=== PATIENT | female | born 1970 | race Caucasian/White ===

== ENCOUNTER 2020-07-30 19:13 | Inpatient (IN) ==
[2020-07-30] MEDS ORDERED: methylPREDNISolone 125 MG/2 ML VIAL IV STA (19:20)
[2020-07-30] MEDS ORDERED: diphenhydrAMINE 50 MG/ML VIAL IV STA ×2 (19:20→22:42)
[2020-07-30] MEDS ORDERED: ACETAMINOPHEN 500 MG TAB PO STA (19:21)
[2020-07-30] MEDS ORDERED: FAMOTIDINE 20MG/5ML IV PUSH IV STA ×2 (19:21→22:42)
[2020-07-30] MEDS ORDERED: EPINEPHrine ADULT AUTO-INJECT 0.3 MG SYR IM STA (19:22)
[2020-07-30] MEDS ORDERED: SODIUM CHLORIDE 0.9% 1000ML 1,000 ML IV SCH (19:30)
[2020-07-30] MEDS ORDERED: EPINEPHrine INJ 1 MG/ML AMP ONE ×2 (19:34→22:42)
[2020-07-30] MEDS ORDERED: EPINEPHrine ADULT AUTO-INJECT 0.3 MG SYR IM PRN (21:15)
[2020-07-30] MEDS ORDERED: SODIUM CHLORIDE 0.9% 1000ML 1,000 ML IV ONE (22:43)
--- NOTE | 2020-07-30 23:27 | Emergency Department Note ---
History of Present Illness General Chief complaint: Allergic Reaction Stated complaint: allergic reaction Source: patient Mode of arrival: ambulatory Limitations: no limitations History of Present Illness Provider complaint: Allergic reaction Maximum Pain Intensity: 0 This pt is a 49 yo female who presents to the ED with c/o allergic reaction. Pt has multiple food allergies but states she is uncertain what she was exposed to tonight. It began with L eye swelling, then pt noticed the swelling in the other eye. She took 25 mg of benedryl, but then noticed some fullness in the chest and tightening of the throat, but not severe. Pt took another benedryl and came to ED>. She has a h/o anaphylaxis, but years ago. She does not carry an epi-pen regularly as she hasn't needed one in "years." Home Medications Medication Instructions Recorded Confirmed Type cetirizine [Zyrtec] 10 mg PO DAILY 01/03/20 07/30/20 History spironolactone 50 mg PO DAILY 01/03/20 07/30/20 History diphenhydramine HCl [Benadryl] 25 mg PO Q6H PRN 07/30/20 07/30/20 History epinephrine 0.3 mg IM ONCE #2 ea 07/30/20 Rx glucosamine sulfate [Glucosamine] 0 mg PO DAILY 07/30/20 07/30/20 History ibuprofen [Advil] 200 mg PO Q6H PRN 07/30/20 07/30/20 History prednisone 40 mg PO DAILY 4 Days #8 tab 07/30/20 Rx famotidine 20 mg PO BID 3 Days #6 tab 07/31/20 Rx Allergies Allergy/AdvReac Type Severity Reaction Status Date / Time apple Allergy Severe Unknown Verified 07/31/20 14:05 [email or web address] Allergy Severe Anaphylaxis Verified 07/31/20 13:45 hazelnut Allergy Severe Unknown Verified 07/31/20 14:05 lawson Allergy Severe Anaphylaxis Verified 07/31/20 13:45 mushroom Allergy Severe Anaphylaxis Verified 07/30/20 21:30 nutmeg oil (Myristica seed Allergy Unknown Unknown Verified 07/31/20 14:05 oil) oxycodone Allergy Unknown Hives Verified 07/30/20 21:30 papaya Allergy Unknown Unknown Verified 07/31/20 14:00 passion fruit Allergy Unknown Unknown Verified 07/31/20 14:25 peach Allergy Unknown Unknown Verified 07/31/20 14:05 tomato Allergy Unknown Unknown Verified 07/31/20 14:14 Past Med/Surg History Medical History Anaphylactic reaction Multiple food allergies Seasonal allergies Surgical History No significant past surgical history Social History Smoking Status: Never smoker Second Hand Exposure: No; Hx Alcohol Use: Yes Hx Substance Use: No Preferred Language: Czech Communication Ability: Effective Dredging Inspector Required: No Beliefs That Will Affect Care: None marital status: Current Living Situation: Spouse and Family current occupational status: employed Feels Safe at Home: Yes Assistive Devices: Glasses Review of Systems See HPI for pertinent positives & negatives. and A total of 10 systems reviewed and were otherwise negative Physical Exam Vital Signs Vital Signs - 24 hr 07/30/20 22:41 07/30/20 23:00 07/30/20 23:30 Pulse Rate 88 98 H 89 Pulse Rate [Right Finger] Pulse Rate from SpO2 Sensor 96 H 90 Respiratory Rate 18 19 18 Respiratory Depth Blood Pressure 143/76 H 161/100 H 144/77 H Blood Pressure [Right Arm] Blood Pressure Mean 98 120 99 Blood Pressure Mean [Right Arm] Blood Pressure Position [Right Arm] Pulse Oximetry 99 95 98 Oxygen Delivery Method 07/30/20 23:53 07/31/20 00:00 Pulse Rate 90 Pulse Rate [Right Finger] 91 H Pulse Rate from SpO2 Sensor 89 Respiratory Rate 18 13 Respiratory Depth Normal Blood Pressure 133/81 Blood Pressure [Right Arm] 144/77 H Blood Pressure Mean 98 Blood Pressure Mean [Right Arm] 99 Blood Pressure Position [Right Arm] Lying Pulse Oximetry 96 96 Oxygen Delivery Method Room Air Vital signs reviewed. General: Well-appearing 49 yo female, in no significant distress. HEENT: No conjunctival injections, PERRLA, neck supple. Moderate periorbital swelling, minimal perioral swelling, minimal posterior oropharyngeal edema. Cardiovascular: Regular rate and rhythm, no extra sounds. Pulmonary: Clear to auscultation bilaterally, normal work of breathing. Abdomen: Soft, nontender, nondistended, positive bowel sounds. Musculoskeletal: Atraumatic, no peripheral edema. Neurologic: Patient awake alert and oriented x 3 Skin: Warm, dry, no rash Course Administered Medications Discontinued Medications Acetaminophen (Acetaminophen 500 Mg Tab) 1,000 mg PO NOW STA Stop: 07/30/20 19:22 Last Admin: 07/30/20 19:39 Dose: 1,000 mg Documented by: [id number] Acetaminophen (Acetaminophen 325 Mg Tab) 650 mg PO Q4H PRN PRN Reason: Pain or Fever Stop: 08/30/20 02:00 Last Admin: 07/31/20 13:43 Dose: 650 mg Documented by: [id number] Admin: 07/31/20 10:07 Dose: 650 mg Documented by: [id number] Cetirizine HCl (Cetirizine Hcl 10 Mg Tablet) 10 mg PO DAILY GIOVANNI Stop: 08/30/20 08:59 Last Admin: 07/31/20 08:32 Dose: 10 mg Documented by: [id number] Diphenhydramine HCl (Diphenhydramine 50 Mg/Ml Vial) 50 mg IV NOW STA Stop: 07/30/20 19:21 Last Admin: 07/30/20 19:40 Dose: 50 mg Documented by: [id number] Diphenhydramine HCl (Diphenhydramine 50 Mg/Ml Vial) 25 mg IV NOW STA Stop: 07/30/20 22:43 Last Admin: 07/30/20 22:48 Dose: 25 mg Documented by: [id number] Diphenhydramine HCl (Diphenhydramine Capsule 25 Mg Cap) 25 mg PO Q6H PRN PRN Reason: Allergy Symptoms Stop: 08/30/20 02:00 Last Admin: 07/31/20 12:36 Dose: 25 mg Documented by: [id number] Diphenhydramine HCl (Diphenhydramine 50 Mg/Ml Vial) 12.5 mg IV ONE ONE Stop: 07/31/20 12:29 Last Admin: 07/31/20 12:36 Dose: 12.5 mg Documented by: [id number] Epinephrine HCl (Epinephrine Adult Auto-Inject 0.3 Mg Syr) 0.3 mg IM NOW STA Stop: 07/30/20 19:23 Last Admin: 07/30/20 19:37 Dose: Not Given Documented by: [id number] Epinephrine HCl (Epinephrine Inj 1 Mg/Ml Amp) Confirm Administered Dose 1 mg .ROUTE .STK-MED ONE Stop: 07/30/20 19:35 Last Admin: 07/30/20 19:36 Dose: 0.3 mg Documented by: [id number] Epinephrine HCl (Epinephrine Inj 1 Mg/Ml Amp) Confirm Administered Dose 1 mg .ROUTE .STK-MED ONE Stop: 07/30/20 22:43 Last Admin: 07/30/20 22:44 Dose: 0.3 mg Documented by: [id number] Famotidine (Famotidine 20mg/5ml Iv Push) 20 mg IV ONE STA Stop: 07/30/20 19:22 Last Admin: 07/30/20 19:39 Dose: 20 mg Documented by: [id number] Famotidine (Famotidine 20mg/5ml Iv Push) 20 mg IV ONE STA Stop: 07/30/20 22:43 Last Admin: 07/30/20 22:48 Dose: 20 mg Documented by: [id number] Famotidine (Famotidine 20 Mg Tab) 20 mg PO BID GIOVANNI Stop: 08/30/20 08:59 Last Admin: 07/31/20 08:32 Dose: 20 mg Documented by: [id number] Sodium Chloride (Nss 1000ml) 1,000 mls @ 999 mls/hr IV .Q1H1M GIOVANNI Stop: 07/30/20 20:30 Last Infusion: 07/30/20 20:46 Dose: 0 mls/hr Documented by: [id number] Admin: 07/30/20 19:40 Dose: 999 mls/hr Documented by: [id number] Sodium Chloride (Nss 1000ml) 1,000 mls @ 999 mls/hr IV .Q1H1M ONE Stop: 07/30/20 23:43 Last Infusion: 07/31/20 02:00 Dose: 0 mls/hr Documented by: [id number] Admin: 07/30/20 23:01 Dose: 999 mls/hr Documented by: [id number] Sodium Chloride (Nss 1000ml) 1,000 mls @ 100 mls/hr IV .Q10H GIOVANNI Stop: 08/30/20 02:00 Last Infusion: 07/31/20 12:53 Dose: 0 mls/hr Documented by: [id number] Admin: 07/31/20 02:53 Dose: 100 mls/hr Documented by: [id number] Famotidine 20 mg/ Syringe 5 mls @ 2.5 mls/min IV ONE ONE Stop: 07/31/20 12:46 Last Admin: 07/31/20 13:39 Dose: 2.5 mls/min Documented by: [id number] Methylprednisolone 40 mg/ (Syringe) 0.64 mls @ 1.5 mls/min IV NOW STA Stop: 07/31/20 12:31 Last Admin: 07/31/20 12:56 Dose: 1.5 mls/min Documented by: [id number] Methylprednisolone (Methylprednisolone 125 Mg/2 Ml Vial) 125 mg IV NOW STA Stop: 07/30/20 19:21 Last Admin: 07/30/20 19:39 Dose: 125 mg Documented by: [id number] Prednisone (Prednisone 20 Mg Tab) 40 mg PO DAILY GIOVANNI Stop: 08/30/20 08:59 Last Admin: 07/31/20 08:32 Dose: 40 mg Documented by: [id number] Spironolactone (Spironolactone 25 Mg Tab) 50 mg PO DAILY GIOVANNI Stop: 08/30/20 08:59 Last Admin: 07/31/20 08:32 Dose: 50 mg Documented by: [id number] Critical Care Time Critical Care Time: Yes The high probability of a clinically significant, sudden or life threatening deterioration required my full and direct attention, intervention and personal management. The aggregate critical care time was 40 minutes. This time is in addition to time spent performing reported procedures but includes the following: [x] Data Review and interpretation [x] Patient assessment and monitoring of vital signs [x] Documentation [x] Medication orders and management Medical Decision Making Differential Diagnosis Allergic reaction, anaphylaxis, urticaria, Kolb-Hieu syndrome, toxic epidermal necrolysis, erythema multiforme, contact dermatitis, cellulitis, as well as other pathologies. Medical Records Attestation: I reviewed the patient's medical records. Home Medications Current Medication List: was personally reviewed by me Laboratory Data Attestation: I reviewed the patient's lab results. Result diagrams: 07/31/20 07:29 07/31/20 07:29 Lab Results 07/30/20 07/30/20 Range/Units 22:52 22:52 COVID-19 Eval Order CovFluRsv at [facility] SARS-CoV-2 (PCR) NEGATIVE (Negative) Influenza Type A (PCR) Negative (Neg) Influenza Type B (PCR) Negative (Neg) RSV (RT-PCR) Negative (Neg) MDM Narrative This pt was evaluated and appeared to be in no distress. IV access was obtained and lab work was drawn. Pt was placed on the cardiac cath lab radiology technologist and IVF were initiated. Pt was medicated with IV solumedral, IV pepcid, IV benadryl and IM epipen. Pt did have a significant coughing episode that resolved after the epi. Pt was observed in the ED for several hours and on my reevaluation stated she initially felt much improved. The periorbital edema never resolved completely, but the she felt well otherwise. At about hour 3-3.5 pt began feeling tight in the chest. VSS. Pt developed coughing, additional IV benadryl and another IM epipen were given. IV 1 L NSS was administered x 2 total. Hospitalist was consulted for further management. Impression & Plan Allergic reaction Discharge Plan Visit Data Chief Complaint: Allergic Reaction Stated Complaint: allergic reaction ED Provider: Ana Robins Discharge Problem: Allergic reaction Patient Disposition: Admitted As Inpatient Condition: Good Discharge Instructions Interventions: ED Discharge Assessment Last Done: 07/31/20 01:28 Discharge Problem: Allergic reaction Qualifiers: Encounter type: initial encounter Qualified Code(s): T78.40XA - Allergy, unspecified, initial encounter
[2020-07-31 00:31] LABS: Influenza A virus by PCR Negative (Neg); Influenza B virus by PCR Negative (Neg); RSV by PCR Negative (Neg); SARS CoV2 RNA(COVID-19) InHosp NEGATIVE (Negative)
--- NOTE | 2020-07-31 01:23 | History and Physical Report ---
DATE OF ADMISSION: 07/30/2020 CHIEF COMPLAINT: Allergic reaction. HISTORY OF PRESENT ILLNESS: A 49-year-old female with past medical history significant history of lymphadenopathy, history of anaphylactic reaction in 1985 and at that time was not sure what caused it. 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 Since then, she never had any reactions. She no longer has EpiPen at home. Today on 07/30/2020 around 6:00 p.m., she had noticed some watering and swelling in the left eye that progressively got worse and she felt some throat closing kind of feeling and nausea and shortness of breath and headache at which time she took Benadryl and she took 2nd Benadryl and came to the ER and she was also having some wheezing and some chest discomfort. In the ER, she was given epinephrine, Benadryl, famotidine and methylprednisone. She seemed to improve, then again she felt like little bit chest discomfort when she was advised to observe in the hospital. Currently, all her symptoms resolved. She has some dull headache, currently no nausea, no wheezing. No chest pain. The swelling in the eyes has improved. She says once in a while she gets itchiness in her lips, but no other reactions or anaphylaxis since 1986. No recent change in medications, no cough, no fever. Currently, no abdominal pain, no blurred vision, no double vision, no earache, no runny nose, no sore throat. Appetite is okay, eating and sleeping okay. Ambulating okay. No diarrhea, no constipation, no blood in stool or black stool, no hematuria, no burning micturition, no swelling in the legs. ALLERGIES: SOME FOOD and PERCOCET. PAST MEDICAL HISTORY: As mentioned above. PAST SURGICAL HISTORY: Excision of the subcutaneous tumor from the back, , colonoscopy, radiocautery of cervix, dental surgery, drain of the ovarian cyst, hysteroscopy, endometrial ablation, bones removed from toes. MEDICATIONS: The patient is on cetirizine 10 mg p.o. daily, Benadryl 25 mg p.o. q. 6 hours p.r.n., glucosamine 1 tablet daily, ibuprofen p.r.n., spironolactone 50 mg p.o. daily. FAMILY HISTORY: Significant for father had laryngeal cancer, CABG. Mother had stroke, phlebitis. Paternal grandmother had diabetes. Paternal grandfather had lung cancer. Maternal grandmother had brain cancer. SOCIAL HISTORY: . No smoking. Alcohol occasional. No drug use. REVIEW OF SYMPTOMS: As per HPI. Rest of review of symptoms negative. PHYSICAL EXAMINATION: GENERAL: The patient is moderate built, not in acute distress. VITAL SIGNS: Temperature 36.8, pulse 91, respiratory rate 18, blood pressure 144/77 and oxygen 96% room air. HEENT: Pupils equal, round, reactive to light. Oral mucosa moist. NECK: No JVD, no neck masses. CARDIOVASCULAR: S1, S2, regular rate and rhythm, no murmur, no gallop. RESPIRATORY SYSTEM: Normal AP diameter. No accessory muscle use. No wheezing, no crackles. ABDOMEN: Soft, bowel sounds present, nontender. No distention. CENTRAL NERVOUS SYSTEM: Cranial nerves II-XII grossly intact. Nonfocal. EXTREMITIES: No edema, no erythema. LABORATORY DATA: SARS-CoV-2 pending. ASSESSMENT AND PLAN: This 49-year-old female who presents with allergic reaction, possible anaphylaxis. Received EpiPen, steroids, Benadryl and famotidine in the ER. Currently, symptoms resolved. 1. Allergic reaction.History of anaphylaxis in the past. We will monitor in the tele floor with prednisone 40 mg daily, Pepcid 20 mg b.i.d. Continue home cetirizine and Benadryl p.r.n., close monitor. If she is stable, possible discharge in a.m. when stable and follow up with allergy/lime plant operator. 2. Chest discomfort. Improved now. From allergic reaction. Follow ekg and troponin. 2. History of acne. Continue spironolactone. Follow with dermatology. 3. Deep venous thrombosis prophylaxis, sequential compression devices. 4. Disposition: Observation on tele floor. Expect discharge home and follow with family doctor. Level 1 full code. MTDD
[2020-07-31] MEDS ORDERED: SODIUM CHLORIDE 0.9% 1000ML 1,000 ML IV SCH (02:01)
[2020-07-31] MEDS ORDERED: ONDANSETRON INJ 2 MG/ML 2 ML VIAL IV PRN (02:01)
[2020-07-31] MEDS ORDERED: diphenhydrAMINE Capsule 25 MG CAP PO PRN (02:01)
[2020-07-31] MEDS ORDERED: NITROGLYCERIN SL 0.4 MG/TAB TAB SL PRN (02:01)
[2020-07-31] MEDS ORDERED: EPINEPHrine INJ 1 MG/ML AMP IM PRN (02:38)
[2020-07-31] MEDS ORDERED: EPINEPHrine ADULT AUTO-INJECT 0.3 MG SYR IM PRN (02:45)
[2020-07-31 07:43] LABS: Basophils # (auto) 0.01 K/uL (0-0.2); Basophils % (auto) 0.1 %; Hematocrit (blood only) 37.7 % (37-47); Hemoglobin 12.6 g/dL (12.0-16.0); Immature Granulocytes # (auto) 0.01 K/uL (0.00-0.02); Immature Granulocytes % (auto) 0.1 %; Lymphocytes # (auto) 0.52 K/uL (1.2-3.4); Lymphocytes % (auto) 5.7 %; Mean Corpuscular Hemoglobin 28.3 pg (25-34); Mean Corpuscular Hgb Conc 33.4 g/dL (32-36); Mean Corpuscular Volume 84.5 fL (80-100); Mean Platelet Volume 10.8 fL (7.4-10.4); Monocytes # (auto) 0.13 K/uL (0.11-0.59); Monocytes % (auto) 1.4 %; Neutrophils # (auto) 8.48 K/uL (1.4-6.5); Neutrophils % (auto) 92.7 %; Platelet Count 326 K/uL (130-400); RDW Coefficient of Variation 13.7 % (11.5-14.5); RDW Standard Deviation 42.4 fL (36.4-46.3); Red Blood Count 4.46 M/uL (4.2-5.4); White Blood Count 9.15 K/uL (4.8-10.8)
[2020-07-31 07:58] LABS: BUN Creatinine Ratio 15.9 (10-20); Calcium 8.4 mg/dl (8.5-10.1); Creatinine Clr Calc Pharmacy 107.8 ml/min; Est GFR (African American) 120.6; Est GFR (Non-African American) 104.1; Magnesium 1.8 mg/dl (1.8-2.4); Potassium 4.4 mmol/L (3.5-5.1)
[2020-07-31] MEDS ORDERED: CETIRIZINE HCL 10 MG TABLET PO SCH (09:00)
[2020-07-31] MEDS ORDERED: FAMOTIDINE 20 MG TAB PO SCH (09:00)
[2020-07-31] MEDS ORDERED: predniSONE 20 MG TAB PO SCH (09:00)
[2020-07-31] MEDS ORDERED: SPIRONOLACTONE 25 MG TAB PO SCH (09:00)
[2020-07-31] MEDS: ACETAMINOPHEN 325 MG TAB PO PRN ×2 (10:07→13:43)
--- NOTE | 2020-07-31 10:17 | Electrocardiogram Report ---
Test Reason : Blood Pressure : / mmHG Vent. Rate : 076 BPM Atrial Rate : 076 BPM P-R Int : 150 ms QRS Dur : 082 ms QT Int : 418 ms P-R-T Axes : 057 014 029 degrees QTc Int : 470 ms Normal sinus rhythm Normal ECG When compared with ECG of 15-APR-2002 07:16, QT has lengthened Confirmed by Kadeem Stuart ([id number]) on 07/31/2020 10:17:25 AM Referred By: REFERRED SELF Confirmed By:Kadeem Stuart
--- NOTE | 2020-07-31 11:42 | Hospitalist Progress Note ---
Date of Service July 31, 2020 Assessment & Plan (1) Allergic reaction: This is a 49-year-old female who presents with allergic reaction, possible anaphylaxis. Received EpiPen, steroids, Benadryl and famotidine in the ER. Currently, symptoms resolved. 1. Allergic reaction.History of anaphylaxis in the past. Monitored in the tele floor with prednisone 40 mg daily, Pepcid 20 mg b.i.d. Continue home cetirizine and Benadryl p.r.n. Clinically, patient is doing much better, swelling almost resolved, there is no shortness of breath or chest tightness. There is also no rash. Patient is able to speak in full sentences without difficulty, no difficulty swallowing either. She is inquiring about going home. Recommend close follow-up with PCP and hybrid derivatives trader. 2. Chest discomfort. Resolved now. CP from allergic reaction. EKG, troponin unremarkable. 3. History of acne. Continue spironolactone. Follow with dermatology. DVT prophylaxis, sequential compression devices. Disposition: Plan to discharge home, and follow-up with family doctor and hybrid derivatives trader Admission and Anticipated Discharge Date Admission Date: July 31, 2020 Subjective Patient seen in follow-up of allergic reaction, eye swelling chest tightness Currently she is resting comfortably, in no acute distress Denies any shortness of breath, chest tightness, no rash Eye swelling is much improved now She is inquiring about going home Review of Systems Review of Systems: All systems reviewed & are unremarkable except as noted in HPI & below Constitutional: no fever and no chills Respiratory: no cough and no dyspnea Cardiovascular: no chest pain and no palpitations Gastrointestinal: no abdominal pain, no nausea and no vomiting Physical Exam Physical Exam: GENERAL: The patient is of moderate built, sitting up in bed, not in acute distress. HEENT: NC/AT, Pupils equal, round, reactive to light. Oral mucosa moist. No significant eye swelling noted. NECK: No JVD, no neck masses. CARDIOVASCULAR: S1, S2, regular rate and rhythm, no murmur, no gallop. RESPIRATORY SYSTEM: Normal AP diameter. No accessory muscle use. No wheezing, no crackles. ABDOMEN: Soft, bowel sounds present, nontender. No distention. NEURO: Cranial nerves II-XII grossly intact. Nonfocal. Speech fluent, no facial asymmetry, moves all extremities SKIN: skin is warm and dry, well-perfused, no rash noted EXTREMITIES: No edema, no erythema. Results & Data Results & Data ([facility]) Vital Signs (Past 12 Hours) Vital Signs Temp Pulse Pulse Resp BP BP Pulse Ox 07/31/20 07:43 36.7 C 74 19 138/75 98 07/31/20 03:45 36.7 C 82 16 118/71 99 07/31/20 02:01 36.6 C 90 90 20 145/73 H 98 07/31/20 01:28 80 16 128/73 99 07/31/20 00:30 84 13 128/71 96 07/31/20 00:00 90 13 133/81 96 07/30/20 23:53 91 H 18 144/77 H 96 Pulse Ox 07/31/20 07:43 07/31/20 03:45 07/31/20 02:01 98 07/31/20 01:28 07/31/20 00:30 07/31/20 00:00 07/30/20 23:53 Laboratory Results 07/31/20 07/31/20 07/31/20 Range/Units 11:20 07:29 07:29 WBC (4.8-10.8) K/uL RBC (4.2-5.4) M/uL Hgb (12.0-16.0) g/dL Hct (37-47) % MCV (80-100) fL MCH (25-34) pg MCHC (32-36) g/dL RDW Std Deviation (36.4-46.3) fL RDW Coeff of Milena (11.5-14.5) % Plt Count (130-400) K/uL MPV (7.4-10.4) fL Immature Gran % (Auto) % Neut % (Auto) % Lymph % (Auto) % Sequoyah % (Auto) % Eos % (Auto) % Baso % (Auto) % Neut # (Auto) (1.4-6.5) K/uL Lymph # (Auto) (1.2-3.4) K/uL Sequoyah # (Auto) (0.11-0.59) K/uL Eos # (Auto) (0-0.5) K/uL Baso # (Auto) (0-0.2) K/uL Immature Gran # (Auto) (0.00-0.02) K/uL Sodium 140 (136-145) mmol/L Potassium 4.4 (3.5-5.1) mmol/L Chloride 114 H (98-107) mmol/L Carbon Dioxide 22 (21-32) mmol/L Anion Gap 4.0 (3-11) BUN 10 (7-18) mg/dl Creatinine 0.64 (0.6-1.2) mg/dl Est Cr Clr Drug Dosing 107.8 ml/min Est GFR ( Amer) 120.6 Est GFR (Non-Af Amer) 104.1 BUN/Creatinine Ratio 15.9 (10-20) Glucose 131 H (70-99) mg/dl Calcium 8.4 L (8.5-10.1) mg/dl Magnesium 1.8 (1.8-2.4) mg/dl Troponin I Pending < 0.015 (0-0.045) ng/ml COVID-19 Eval Order SARS-CoV-2 (PCR) (Negative) Influenza Type A (PCR) (Neg) Influenza Type B (PCR) (Neg) RSV (RT-PCR) (Neg) 07/31/20 07/30/20 07/30/20 Range/Units 07:29 22:52 22:52 WBC 9.15 (4.8-10.8) K/uL RBC 4.46 (4.2-5.4) M/uL Hgb 12.6 (12.0-16.0) g/dL Hct 37.7 (37-47) % MCV 84.5 (80-100) fL MCH 28.3 (25-34) pg MCHC 33.4 (32-36) g/dL RDW Std Deviation 42.4 (36.4-46.3) fL RDW Coeff of Milena 13.7 (11.5-14.5) % Plt Count 326 (130-400) K/uL MPV 10.8 H (7.4-10.4) fL Immature Gran % (Auto) 0.1 % Neut % (Auto) 92.7 % Lymph % (Auto) 5.7 % Sequoyah % (Auto) 1.4 % Eos % (Auto) 0.0 % Baso % (Auto) 0.1 % Neut # (Auto) 8.48 H (1.4-6.5) K/uL Lymph # (Auto) 0.52 L (1.2-3.4) K/uL Sequoyah # (Auto) 0.13 (0.11-0.59) K/uL Eos # (Auto) 0.00 (0-0.5) K/uL Baso # (Auto) 0.01 (0-0.2) K/uL Immature Gran # (Auto) 0.01 (0.00-0.02) K/uL Sodium (136-145) mmol/L Potassium (3.5-5.1) mmol/L Chloride (98-107) mmol/L Carbon Dioxide (21-32) mmol/L Anion Gap (3-11) BUN (7-18) mg/dl Creatinine (0.6-1.2) mg/dl Est Cr Clr Drug Dosing ml/min Est GFR ( Amer) Est GFR (Non-Af Amer) BUN/Creatinine Ratio (10-20) Glucose (70-99) mg/dl Calcium (8.5-10.1) mg/dl Magnesium (1.8-2.4) mg/dl Troponin I (0-0.045) ng/ml COVID-19 Eval Order [facility]FluRsv at [facility] SARS-CoV-2 (PCR) NEGATIVE (Negative) Influenza Type A (PCR) Negative (Neg) Influenza Type B (PCR) Negative (Neg) RSV (RT-PCR) Negative (Neg) Medications Administered Current Inpatient Medications Acetaminophen (Acetaminophen 325 Mg Tab) 650 mg PO Q4H PRN PRN Reason: Pain or Fever Stop: 08/30/20 02:00 Last Admin: 07/31/20 10:07 Dose: 650 mg Documented by: Cetirizine HCl (Cetirizine Hcl 10 Mg Tablet) 10 mg PO DAILY GIOVANNI Stop: 08/30/20 08:59 Last Admin: 07/31/20 08:32 Dose: 10 mg Documented by: Diphenhydramine HCl (Diphenhydramine Capsule 25 Mg Cap) 25 mg PO Q6H PRN PRN Reason: Allergy Symptoms Stop: 08/30/20 02:00 Epinephrine HCl (Epinephrine Inj 1 Mg/Ml Amp) 0.3 mg IM UD PRN PRN Reason: Allergic Reaction Stop: 08/30/20 02:37 Famotidine (Famotidine 20 Mg Tab) 20 mg PO BID GIOVANNI Stop: 08/30/20 08:59 Last Admin: 07/31/20 08:32 Dose: 20 mg Documented by: Sodium Chloride (Nss 1000ml) 1,000 mls @ 100 mls/hr IV .Q10H GIOVANNI Stop: 08/30/20 02:00 Last Admin: 07/31/20 02:53 Dose: 100 mls/hr Documented by: Nitroglycerin (Nitroglycerin Sl 0.4 Mg/Tab Tab) 0.4 mg SL UD PRN PRN Reason: Chest Pain Stop: 08/30/20 02:00 Ondansetron HCl (Ondansetron Inj 2 Mg/Ml 2 Ml Vial) 4 mg IV Q6H PRN PRN Reason: Nausea Stop: 08/30/20 02:00 Prednisone (Prednisone 20 Mg Tab) 40 mg PO DAILY [facility] Stop: 08/30/20 08:59 Last Admin: 07/31/20 08:32 Dose: 40 mg Documented by: Spironolactone (Spironolactone 25 Mg Tab) 50 mg PO DAILY GIOVANNI Stop: 08/30/20 08:59 Last Admin: 07/31/20 08:32 Dose: 50 mg Documented by: (1) Allergic reaction Encounter type: initial encounter Qualified Code(s): T78.40XA - Allergy, unspecified, initial encounter
--- NOTE | 2020-07-31 12:21 | Discharge Summary ---
Date of Service July 31, 2020 Admission HPI Per Admitting Provider A 49-year-old female with past medical history significant history of lymphadenopathy, history of anaphylactic reaction in 1985 and at that time was not sure what caused it. 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 Since then, she never had any reactions. She no longer has EpiPen at home. Today on 07/30/2020 around 6:00 p.m., she had noticed some watering and swelling in the left eye that progressively got worse and she felt some throat closing kind of feeling and nausea and shortness of breath and headache at which time she took Benadryl and she took 2nd Benadryl and came to the ER and she was also having some wheezing and some chest discomfort. In the ER, she was given epinephrine, Benadryl, famotidine and methylprednisone. She seemed to improve, then again she felt like little bit chest discomfort when she was advised to observe in the hospital. Currently, all her symptoms resolved. She has some dull headache, currently no nausea, no wheezing. No chest pain. The swelling in the eyes has improved. She says once in a while she gets itchiness in her lips, but no other reactions or anaphylaxis since 1986. No recent change in medications, no cough, no fever. Currently, no abdominal pain, no blurred vision, no double vision, no earache, no runny nose, no sore throat. Appetite is okay, eating and sleeping okay. Ambulating okay. No diarrhea, no constipation, no blood in stool or black stool, no hematuria, no burning micturition, no swelling in the legs. Admission Exam Per Admitting Provider GENERAL: The patient is moderate built, not in acute distress. VITAL SIGNS: Temperature 36.8, pulse 91, respiratory rate 18, blood pressure 144/77 and oxygen 96% room air. HEENT: Pupils equal, round, reactive to light. Oral mucosa moist. NECK: No JVD, no neck masses. CARDIOVASCULAR: S1, S2, regular rate and rhythm, no murmur, no gallop. RESPIRATORY SYSTEM: Normal AP diameter. No accessory muscle use. No wheezing, no crackles. ABDOMEN: Soft, bowel sounds present, nontender. No distention. CENTRAL NERVOUS SYSTEM: Cranial nerves II-XII grossly intact. Nonfocal. EXTREMITIES: No edema, no erythema. Principal Diagnosis Allergic reaction, eye swelling, chest tightness (secondary to allergic reaction) Discharge Exam GENERAL: The patient is of moderate built, sitting up in bed, not in acute distress. HEENT: NC/AT, Pupils equal, round, reactive to light. Oral mucosa moist. No significant eye swelling noted. NECK: No JVD, no neck masses. CARDIOVASCULAR: S1, S2, regular rate and rhythm, no murmur, no gallop. RESPIRATORY SYSTEM: Normal AP diameter. No accessory muscle use. No wheezing, no crackles. ABDOMEN: Soft, bowel sounds present, nontender. No distention. NEURO: Cranial nerves II-XII grossly intact. Nonfocal. Speech fluent, no fa cial asymmetry, moves all extremities SKIN: skin is warm and dry, well-perfused, no rash noted EXTREMITIES: No edema, no erythema. Discharge Data Allergies Allergy/AdvReac Type Severity Reaction Status Date / Time [email or web address] Allergy Severe Anaphylaxis Unverified 07/30/20 21:30 lawson Allergy Severe Anaphylaxis Unverified 07/30/20 21:30 mushroom Allergy Severe Anaphylaxis Verified 07/30/20 21:30 nut - unspecified Allergy Severe Anaphylaxis Verified 07/30/20 21:30 oxycodone Allergy Unknown Hives Verified 07/30/20 21:30 Various Tropical Fruits Allergy Severe Anaphylaxis Uncoded 07/30/20 21:36 Consultations 07/30/20 22:45 ED Decision to Admit Stat Hospital Course (1) Allergic reaction: This is a 49-year-old female who presents with allergic reaction, possible anaphylaxis. Received EpiPen, steroids, Benadryl and famotidine in the ER. Currently, symptoms resolved. 1. Allergic reaction.History of anaphylaxis in the past. Monitored in the tele floor with prednisone 40 mg daily, Pepcid 20 mg b.i.d. Continue home cetirizine and Benadryl p.r.n. Clinically, patient is doing much better, swelling almost resolved, there is no shortness of breath or chest tightness. There is also no rash. Patient is able to speak in full sentences without difficulty, no difficulty swallowing either. She is inquiring about going home. Recommend close follow-up with PCP and auto motor mechanic. 2. Chest discomfort. Resolved now. CP from allergic reaction. EKG, troponin unremarkable. 3. History of acne. Continue spironolactone. Follow with dermatology. DVT prophylaxis, sequential compression devices. Disposition: Plan to discharge home, and follow-up with family doctor and auto motor mechanic Total Time Total Time Spent Total Time Spent (In Minutes): 35 Total Time Includes: Examination of the Patient, Discharge Planning and Medication Reconciliation Discharge Plan Discharge Items Patient Disposition: Home - Self-Care Reason For Visit: allergic reaction Discharge Diagnosis: Allergic reaction, eye swelling, chest tightness (secondary to allergic reaction) Condition on Discharge: Good Activity: Per Instructions section Non-emergency contact: Primary Care Provider Call non-emergency contact if: you have any medication questions and your symptoms worsen Follow-up/Referrals: Ellis Lopez DO [Primary Care Provider] - Diet: Heart Healthy Addtl Attending Provider Instructions: Follow-up with your primary doctor, it is recommended that you are seen within a week. It is also recommended that you follow-up with auto motor mechanic. Take prednisone and famotidine for next couple of days, as prescribed. Try to avoid any new foods or other possible exposures that could cause allergic reaction. Pending Studies at Discharge: No Stand-Alone Forms: My [facility] [employer], Smoking Cessation Medications and DC Order Prescriptions: New epinephrine 0.3 mg/0.3 mL auto-injector 0.3 mg IM ONCE Qty: 2 RF: 0 prednisone 20 mg tablet 40 mg PO DAILY 4 Days Qty: 8 RF: 0 famotidine 20 mg Tablet 20 mg PO BID 3 Days Qty: 6 RF: 0 Continued cetirizine [Zyrtec] 10 mg Tablet 10 mg PO DAILY RF: 0 spironolactone 50 mg tablet 50 mg PO DAILY RF: 0 glucosamine sulfate [Glucosamine] 500 mg Tablet 0 mg PO DAILY RF: 0 diphenhydramine HCl [Benadryl] 25 mg Capsule 25 mg PO Q6H PRN (Reason: Allergy Symptoms) RF: 0 ibuprofen [Advil] 200 mg Tablet 200 mg PO Q6H PRN (Reason: Pain) RF: 0 Discharge Orders: Discharge Order (Routine); Ordered 07/31/20 Ordered By: Bogdan Vu Admission Data Admit Date/Time: 07/31/20 00:21 Attending Provider: Bogdan Vu Admit Provider: Palepu,Tim P. Primary Care Provider: Ellis Lopez Other Providers: Tim Peterson
[2020-07-31] MEDS ORDERED: diphenhydrAMINE 50 MG/ML VIAL IV ONE (12:28)
[2020-07-31] MEDS ORDERED: methylPREDNISolone 40 MG in SYRINGE 0 ML IV STA (12:30)
[2020-07-31] MEDS ORDERED: FAMOTIDINE 20 MG in SYRINGE 3 ML IV ONE (12:45)
== END 2020-07-31 16:00 | disposition home or self-care (01) | DRG 916 ==
LOC: ED 19:13 → 2S 07-31 00:21 → SUATTDRO 07-31 00:21 → 2S 07-31 01:28